=== PATIENT | male | born 1985 | race Caucasian/White ===

== ENCOUNTER 2021-04-03 19:20 | Emergency (ER) | payer SELFPAY ==
[~2021-04-03] VITALS: Ht 182.9 cm; Wt 162.4 kg
== END 2021-04-04 01:25 | disposition home or self-care (01) ==
LOC: ER1 19:20
DX: U07.1 COVID-19 (principal); E66.01 Morbid (severe) obesity due to excess calories; R03.0 Elevated blood-pressure reading, without diagnosis of hypertension
CPT/HCPCS: 99283; M0245